=== PATIENT | male | born 1975 | race Caucasian/White ===

== ENCOUNTER 2020-03-25 15:09 | Emergency (ER) | payer OTHER, SELFPAY ==
[2020-03-25 15:20] VITALS: BP 135/83; PULSE 85; RESP 20; TEMP 37; O2SAT 98
--- NOTE | 2020-03-25 15:25 | ED.URI ---
HPI - URI/Sore Throat General Chief Complaint: Upper Respiratory Infection Stated Complaint: Sore throat Time Seen by Provider: 03/25/20 15:25 Source: patient and RN notes reviewed History of Present Illness HPI Narrative: Patient is a 44-year-old male who presents the urgent care with complaints of a swollen lymph node. Patient states it happened approximately 1 hour ago while he was eating and has gone down since his drive to our location from [place]. Patient has no other acute complaints. Has denied any upper respiratory symptoms or fever recently. Patient did nothing to improve the swollen lymph node. No other acute complaints. No acute distress noted. Patient read the plan of care. Related Data Home Medications Medication Instructions Recorded Confirmed fluticasone propionate [Flonase 1 spray INTRANASAL BID 03/25/20 03/25/20 Allergy Relief] Allergies Allergy/AdvReac Type Severity Reaction Status Date / Time No Known Allergies Allergy Unknown Unverified 03/25/20 15:28 Review of Systems Review of Systems: Narrative: CONSTITUTIONAL: Denies fever, chills, or sweats. EYES: Denies visual changes, redness, or discharge. ENT: Reports of right swollen lymph node CARDIOVASCULAR: Denies chest pain, palpitations, or edema. RESPIRATORY: Denies cough or dyspnea. GASTROINTESTINAL: Denies abdominal pain, nausea, vomiting, or diarrhea. GENITOURINARY: Denies dysuria or hematuria. SKIN: Denies rash or itching. MUSCULOSKELETAL: Denies back pain, joint pain, or myalgia. NEUROLOGIC: Denies headache, numbness, or weakness. All other systems reviewed are negative, except as documented in HPI. PMFSH Social History Social History Smoking status: Never smoker Alcohol intake: never Comments At the time of my signature, I reviewed and agree with the nursing past medical, surgical, social, and family history. There is no relevant family history pertinent to the patient complaint. Exam Narrative: Exam Narrative: GENERAL: This is a well-nourished, well-developed patient, in no apparent distress. HEAD: normocephalic, atraumatic. EYES: PERRL. Sclera clear/white. Vision is grossly intact. EARS: External ears normal NOSE: External nose normal with no obvious nasal discharge, nares without redness, no rhinorrhea. THROAT: Mucous membranes moist, posterior pharynx clear. NECK: Neck supple, non-tender very mild left submandibular lymphadenopathy, masses or thyromegaly. SKIN: warm, intact with no suspicious lesions or rash, good texture and turgor. NEURO: awake, alert, and oriented to person, place and time. There were no obvious focal neurologic abnormalities. EXTREMITIES: No clubbing, cyanosis, or edema. Course Vital Signs Vital signs: Vital Signs Temperature 98.6 F 03/25/20 15:20 Pulse Rate 85 03/25/20 15:20 Respiratory Rate 20 03/25/20 15:20 Blood Pressure 135/83 03/25/20 15:20 Pulse Oximetry 98 03/25/20 15:20 Temperature 98.6 F 03/25/20 15:20 Pulse Rate 85 03/25/20 15:20 Respiratory Rate 20 03/25/20 15:20 Blood Pressure 135/83 03/25/20 15:20 Pulse Oximetry 98 03/25/20 15:20 Reviewed MDM - URI/Sore Throat MDM Narrative Medical decision making narrative: Educated the patient on swollen lymph nodes and when to be worried. It is likely the swelling was due to increased production of saliva and swelling in the posterior parietal gland. However, there is no obvious increase swelling at this time. If you develop any increase in swelling associated with fatigue, lethargy, fever, other upper respiratory symptoms?follow-up with your PCP for further evaluation and possible blood work. However, it is very common for unilateral lymph node swelling or salivary gland swelling to be nonrelated to any infectious diseases. Lymph node swelling is typically due to viral causes. Follow-up with your PCP within 2 to 5 days or for worsening symptoms or failure to improve. Differential Diagnosis Different
== END 2020-03-25 15:42 | disposition home or self-care (01) ==
PROVIDERS: Emergency Provider Nurse Practitioner Family
DX: Z71.1 Person with feared health complaint in whom no diagnosis is made (principal)
CPT/HCPCS: 99211; G0463

== ENCOUNTER 2022-06-11 11:09 | Emergency (ER) | payer OTHER, SELFPAY ==
--- NOTE | ~2022-06-11 | XR_ITS ---
XR foot RT min 3V 06/11/2022 11:35 Indication: Right foot pain Procedure: 4 views right foot Comparison: 09/02/2006 Findings: No acute fracture, subluxation or dislocation. Mild osteoarthritis of the first MTP joint. No significant soft tissue abnormality. No foreign bodies. Impression: 1: No acute fracture. Reviewed, dictated and finalized at location B. Impression: 1: No acute fracture.
[2022-06-11 11:17] VITALS: BP 143/86; PULSE 70; RESP 14; TEMP 36.6; O2SAT 97
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
== END 2022-06-11 11:55 | disposition home or self-care (01) ==
PROVIDERS: Emergency Provider Registered Nurse
DX: M79.671 Pain in right foot (principal); F17.220 Nicotine dependence, chewing tobacco, uncomplicated; K21.9 Gastro-esophageal reflux disease without esophagitis
CPT/HCPCS: 73630; 99213; G0463

== ENCOUNTER 2024-12-23 12:22 | Outpatient (CLI) | payer OTHER, SELFPAY ==
--- OUTSIDE RECORDS SUMMARY | 2024-12-23 12:28 | XMS_ITS | Encounter Summary ---
Author Organization [facility] Address [address] [place] [address] Care Team Providers Care Director Of Strategic Programs Name Role Phone Shanita Vera MD Primary Care Provider [phone] Encounter Details Date Type Department Care Team (Late st Contact Info) Description 12/10/2024 Results Follow-Up [facility] at Work [place] [address] [place] [address] Rocio Mandel, ANGELA [address] [facility] [address] [place] [address] MAGNESIUM LEVEL, TSH REFLEXIVE, BASIC METABOLIC PANEL Social History Tobacco Use Types Packs/Day Years Used Date Smoking Tobacco: Former Cigarettes Smokeless Tobacco: Current Chew Comments:SMOKELESS TOBACCO S KALA 2010 Alcohol Use Standard Drinks/Week Comments Yes 0 (1 standard drink = 0.6 oz pure alcohol) [place] tea every few months Sex and Gender Information Value Date Recorded Sex Assigned at Male 10/06/2024 8:35 AM HAND ASSEMBLER Legal Sex Male 3:47 AM HAND ASSEMBLER Gender Identity Male 10/06/2024 8:35 AM HAND ASSEMBLER Sexual Orientation Not on file documented as of this encounter Miscellaneous Notes * Result Encounter Note - Rocio Mandel ANP - 12/10/2024 5:55 PM CDT Contact patient regarding result. All electrolyte levels are normal. Potassium low normal but is normal. Recommend eat a banana or a citrus fruit, like orange or grapefruit daily to get level up. Do not take a pill potassium supplement. Continue with plan for the heart monitor. documented in this encounter Plan of Treatment Not on file documented as of this encounter Visit Diagnoses Not on filedocumented in this encounter Care Teams Director Of Strategic Programs Relationship Specialty Start Date End Date Shanita Vera MD [address] [place] [address] [place] [address] PCP - General Internal Medicine 09/08/24 documented as of this encounter
--- OUTSIDE RECORDS SUMMARY | 2024-12-23 12:28 | XMS_ITS | Encounter Summary ---
Author Organization [facility] Address [address] [place] [address] Care Team Providers Care Conditioner Tumbler Name Role Phone Shanita Vera MD Primary Care Provider [phone] Encounter Details Date Type Department Care Team (Latest Contact Info) Description 10/24/2024 Results Follow-Up [facility] at Work [employer] [place] [address] [place] [place] [address] Rocio Mandel ANP [id number] [facility] [place] [address] [place] [address] HEMOGLOBIN A1C, CBC WITH DIFFERENTIAL Social History Tobacco Use Types Packs/Day Years Used Date Smoking Tobacco: Former Cigarettes Smokeless Tobacco: Current Chew Comments:SMOKELESS TOBACCO S KALA 2010 Alcohol Use Standard Drinks/Week Comments Yes 0 (1 standard drink = 0.6 oz pure alcohol) long island tea every few months Sex and Gender Information Value Date Recorded Sex Assigned at Male 10/06/2024 8:35 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 Pt declined to schedule at this time. * Result Encounter Note - Rocio Mandel ANP - 10/24/2024 7:28 AM CDT Contact patient regarding result. Repeat labs look good. No abnormal cells present. Blood sugar ok. Recommend FU for wt check and BP check in 6 months. documented in this encounter Plan of Treatment Not on file documented as of this encounter Visit Diagnoses Not on filedocumented in this encounter Care Teams Conditioner Tumbler Relationship Specialty Start Date End Date Shanita Vera MD [address] [place] [address] [place] [address] PCP - General Internal Medicine 09/08/24 documented as of this encounter
--- OUTSIDE RECORDS SUMMARY | 2024-12-23 12:28 | XMS_ITS | Encounter Summary ---
Author Organization [employer] Address 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
--- OUTSIDE RECORDS SUMMARY | 2024-12-23 12:28 | XMS_ITS | Referral Summary ---
Author Organization [facility] Address [address] [place] [address] Care Team Providers Care Rental Clerk Tool And Equipment Name Role Phone Oz Dockery Primary Care Provider [phone] Allergies No known active allergies Medications albuterol HFA (PROVENTIL HFA,VENTOLIN HFA,PROAIR HFA) 90 mcg/actuation inhaler Inhale 2 puffs every 4 (four) hours as needed for wheezing. 1 Inhaler 8 Active guaiFENesin-cod eine (GUAITUSS AC) liquid 100-10 mg/5 mL Take 5 mL by mouth 3 (three) times a day as needed for cough 120 mL 9 Active Additional Information Patient not taking.Reported on 07/23/2020 fluticasone propionate (FLONASE) 50 mcg/actuation nasal spray Administer 2 sprays into affected nostril(s) daily 0 Active testosterone cypionate (DEPO-TESTOTERO NE) 200 mg/mL injection Inject 200 mg into the muscle as instructed every 2 (two) weeks 0 Active Active Problems Problem Noted Date Diagnosed Date Esophagitis, unspecified with bleeding 1 Overview (11/26/2020): Added automatically from request for surgery [id number] Dysphagia 07/23/2020 Overview (07/23/2020): Added automatically from request for surgery [id number] Assessment & Plan (07/23/2020 2:20 PM SEAT BUILDER): -Schedule EGD. Class 3 severe obesity due t o excess calories without serious comorbidity with body mass index (BMI) of 40.0 to 44.9 in adult 07/23/2020 Social History Tobacco Use Types Packs/Day Years Used Date Smoking Tobacco: Some Days Cigarettes Smokeless Tobacco: Current Chew Alcohol Use Standard Drinks/Week Comments Yes 0 (1 standard drink = 0.6 oz pur e alcohol) rare Sex and Gender Information Value Date Recorded Sex Assigned at Not on file Legal Sex Male 2:00 AM SEAT BUILDER Gender Identity Male 10/04/2024 6:08 AM SEAT BUILDER Sexual Orientation Straight 10/04/2024 6: 08 AM SEAT BUILDER Last Filed Vital Signs Vital Sign Reading Time Taken Comments Blood Pressure 141/100 09/19/2020 10:15 AM SEAT BUILDER Pulse 61 09/19/2020 10:15 AM SEAT BUILDER Temperature 36.7 C (98.1 F) 09/19/2020 10:15 AM SEAT BUILDER Respiratory Rate 18 09/19/2020 10:15 AM SEAT BUILDER Oxygen Saturation 95% 09/19/2020 10:15 AM SEAT BUILDER Inhaled Oxygen Concentration - - Weight 132 kg (291 lb) 07/23/2020 10:40 AM SEAT BUILDER Height 180.3 cm (5' 11 ) 07/23/2020 10:40 AM SEAT BUILDER Body Mass Index 40.59 07/23/2020 10:40 AM SEAT BUILDER Plan of Treatment Not on file Insurance [place] [address] [address] [employer] Advance Directives For more information, please contact: [phone] * Full Code (Latest Code Status on File) Date Activated Date Inactivated Comments 09/19/2020 8:26 AM 09/19/2020 2:30 PM Care Teams Rental Clerk Tool And Equipment Relationship Specialty Start Date End Date Oz Dockery: [id number] [address] [address] PCP - General 09/19/20
--- OUTSIDE RECORDS SUMMARY | 2024-12-23 12:28 | XMS_ITS | Clinical Summary ---
Author Organization [facility] [employer] [place] Address [address] [place] [address] Care Team Providers Care Take Out Waiter Name Role Phone Shanita Vera MD Primary Care Provider [phone] Allergies No known active allergies Medications aluminum chloride (DRYSOL) 20 % SolutionIndicat ions:Hyperhidro sis Apply layer to feet daily until controlled. Then may use prn 60 mL 02/22/20 22 Active ergocalciferol (VITAMIN D2) 50,000 unit capsuleIndicati ons:Vitamin D deficiency Take 1 Capsule (50,000 Units) by mouth every 7 days. 12 Capsule 07/07/20 24 Active cetirizine (Allergy Relief, cetirizine,) 10 mg tabletIndicatio ns:Allergic rhinitis, unspecified seasonality, unspecified trigger Take 1 Tablet (10 mg) by mouth daily. 90 Tablet 10/21/19 25 Active fluticasone propionate (FLONASE) 50 mcg/spray [place], Suspension nasal inhaler Administer 2 Sprays in each nostril daily. 16 Gram 10/21/19 25 Active pantoprazole (PROTONIX) 40 mg Tablet, Delayed Release (E.C.) Take 1 tablet by mouth once daily 90 Tablet 12/08/19 25 Active pantoprazole (PROTONIX) 40 mg Tablet, Delayed Release (E.C.) Take 1 tablet by mouth once daily 90 Tablet 09/08/19 25 025 Discontinued doxycycline hyclate (VIBRAMYCIN) 100 mg tablet Take 1 Tablet (100 mg) by mouth 2 times daily for 10 days. 20 Tablet 11/16/19 25 025 Active Problems Problem Noted Date Diagnosed Date BANDAR (obstructive sleep apnea) 12/06/2024 Overview (12/06/2024): 2019 testing positive. CPAP used for 2.5 months. Not effective so pt stopped use. Chewing tobacco use 10/20/2024 Skin tags, multiple acquired 04/11/2022 Elevated serum creatinine 04/11/2022 Low vitamin B12 level 04/11/2022 Vitamin D insufficiency 04/11/2022 Mixed anxiety and depressive disorder 04/11/2022 GERD (gastroesophageal reflux disease) Allergic rhinitis 08/15/2019 Tobacco use 07/13/2018 Encounters Date Type Department Care Team Description 12/10/2024 Results Follow-Up [facility] [address] [address] Rocio Mandel, ANGELA MAGNESIUM LEVEL, TSH REFLEXIVE, BASIC METABOLIC PANEL 12/09/2024 Telephone [facility] at [facility] Oculo Therapy [place] [address] [place] [address] Rocio Mandel ANP Holter Monitor Order 12/07/2024 Refill [facility] at [place] [address] [place] [address] Shanita Vera MD 12/06/2024 1:00 PM CDT Office Visit [facility] at [place] [address] [place] [address] Rocio Mandel ANP PVC (premature ventricular contraction) (Primary Dx); Symptomatic PVCs; Morbid obesity with body mass index of 40.0-49.9 ([facility]); BANDAR (obstructive sleep apnea) 12/01/2024 Orders Only [facility] at [place] [address] [place] [address] Rocio Mandel ANP 11/29/2024 External Device Data STL ABSTRACTION Provider, Abstract 11/16/2024 2:20 PM CDT Procedure visit [facility] at [place] [address] [place] [address] Issue of repeat prescription (Primary Dx) 11/15/2024 Refill [facility] at [place] [address] [place] [address] Rocio Mandel ANP 10/25/2024 External Device Data STL ABSTRACTION Provider, Abstract 10/25/2024 External Device Data STL ABSTRACTION Provider, Abstract 10/24/2024 Results Follow-Up [facility] at [place] [address] [place] [address] Rocio Mandel ANP HEMOGLOBIN A1C, CBC WITH DIFFERENTIAL 10/22/2024 External Device Data STL ABSTRACTION Provider, Abstract 10/21/2024 External Device Data STL ABSTRACTION Provider, Abstract 10/20/2024 1:30 PM HYDROELECTRIC SYSTEMS TECHNICIAN Office Visit [facility] at [place] [address] [place] [address] Rocio Mandel ANP Abnormal CBC measurement (Primary Dx); Mixed hyperlipidemia; Acute non-recurrent maxillary sinusitis; Vitamin D insufficiency; Chewing tobacco use; Allergic rhinitis, unspecified seasonality, unspecified trigger 10/11/2024 External Device Data STL ABSTRACTION Provider, Abstract 10/06/2024 Results Follow-Up [facility] at [place] [address] [place] [address] Shanita Vera MD TSH, LIPID PANEL, COMPREHENSIVE METABOLIC PANEL, Additional followed-up results: 2 10/04/2024 8:00 AM HYDROELECTRIC SYSTEMS TECHNICIAN Office Visit [facility] at [place] [address] [place] [address] Screening for condition (Primary Dx); Vitamin D deficiency 09/26/2024 Refill [facility] at [address] [place] [address] Roya Guillaume MD Vitamin D deficiency from Last 3 Months Immunizations Immunization Administration Dates Next Due Influenza Seasonal Unspecified Formulation IM Family History Medical History Relation Name Comments Unknown Father n/a Heart Surgery Maternal Grandfather Unknown Maternal Grandmother n/a Cataract Mother titi Other Mother titi blood clots, to bacco use Stroke Mother titi Unknown Paternal Grandfather n/a n/a Unknown Paternal Grandmother n/a n/a Relation Name Status Comments Father n/a Other Maternal Grandfather Maternal Grandmother n/a Alive Mother titi Paternal Grandfather n/a Other Paternal Grandmother n/a Other Social History Tobacco Use Types Packs/Day Years Used Date Smoking Tobacco: Former Cigarettes Smokeless Tobacco: Current Chew Tobacco Cessation:Ready to Q uit: Not Asked; Counseling Given: Not Answered Comments:SMOKELESS TOBACCO SINCE 2010 Alcohol Use Standard Drinks/Week Comments Yes 0 (1 standard drink = 0.6 oz pure alcohol) [place] tea every few months Sex and Gender Information Value Date Recorded Sex Assigned at Male 10/06/2024 8:35 AM HYDROELECTRIC SYSTEMS TECHNICIAN Legal Sex Male 3:47 AM HYDROELECTRIC SYSTEMS TECHNICIAN Gender Identity Male 10/06/2024 8:35 AM HYDROELECTRIC SYSTEMS TECHNICIAN Sexual Orientation Not on file Last Filed Vital Signs Vital Sign Reading Time Taken Comments Blood Pressure 128/76 12/06/2024 12:59 PM CDT Pulse 74 12/06/2024 12:59 PM CDT Temperature 37 C (98.6 F) 12/06/2024 12:59 PM CDT Respiratory Rate 18 12/06/2024 12:59 PM CDT Oxygen Saturation 98% 12/06/2024 12:59 PM CDT Inhaled Oxygen Concentration - - Weight 137.4 kg (303 lb) 12/06/2024 12:59 PM CDT Height 180.3 cm (5' 11 ) 12/06/2024 12:59 PM CDT Body Mass Index 42.26 12/06/2024 12:59 PM CDT Plan of Treatment Health Maintenance Due Date Last Done Comments DTAP/TDAP/TD VACCINES (1 - Tdap) 1993 HEPATITIS B VACCINES (1 of 3 - 19+ 3-dose series) 1993 COLORECTAL SCREENING 2019 FIT/FOBT Q 1 year 2019 Flex Sig/CT Colonography Q 5 years 2019 INFLUENZA VACCINE (#1) 2024 09/24/2020 ZOSTER VACCINE (1 of 2) 2024 Preventative Visit- Commercial 08/17/2024 Colorectal Cancer Screening 07/22/2027 FIT-DNA Q 3 years 07/22/2027 07/22/2024 Pre-Diabetes and Diabetes Screening 10/21/2027 10/20/2024, 05/29/2023, 10/13/2022, Additional history exists Procedures Procedure Name Priority Date/Time Associated Diagnosis Comments BASIC METABOLIC PANEL Routine 12/06/2024 1:40 PM CDT Symptomatic PVCs TSH REFLEXIVE Routine 12/06/2024 1:40 PM CDT Symptomatic PVCs MAGNESIUM LEVEL Routine 12/06/2024 1:40 PM CDT Symptomatic PVCs DC ECG ROUTINE ECG W/LEAST 12 LDS W/I&R Routine 12/06/2024 1:00 PM CDT Symptomatic PVCs CBC WITH DIFFERENTIAL Routine 10/20/2024 2:10 PM HYDROELECTRIC SYSTEMS TECHNICIAN Abnormal CBC measurement HEMOGLOBIN A1C Routine 10/20/2024 2:10 PM HYDROELECTRIC SYSTEMS TECHNICIAN Abnormal CBC measurement VITAMIN D 25 HYDROXY Routine 10/04/2024 7:54 AM HYDROELECTRIC SYSTEMS TECHNICIAN Vitamin D deficiency CBC WITH DIFFERENTIAL Routine 10/04/2024 7:54 AM HYDROELECTRIC SYSTEMS TECHNICIAN Screening for condition COMPREHENSIVE METABOLIC PANEL Routine 10/04/2024 7:54 AM HYDROELECTRIC SYSTEMS TECHNICIAN Screening for condition LIPID PANEL Routine 10/04/2024 7:54 AM HYDROELECTRIC SYSTEMS TECHNICIAN Screening for condition TSH Routine 10/04/2024 7:54 AM HYDROELECTRIC SYSTEMS TECHNICIAN Screening for condition COLON CANCER SCREEN, STOOL DNA Routine 07/22/2024 1:26 AM HYDROELECTRIC SYSTEMS TECHNICIAN Encounter for colorectal cancer screening from Last 3 Months or Most Recently Relevant to Health Maintenance Results * TSH REFLEXIVE (12/06/2024 1:40 PM CDT) [facility] TSH 1.78 0.40 - 4.50 mIU/L [facility] Comment: Test Performed at: [place] [address] [place] [address] [facility] Blood 12/06/2024 1:40 PM CDT 12/07/2024 2:54 AM CDT Rocio Mandel ANP CHEMISTRY ORDERABLES Final R esult [facility] [phone] [place] [address] [address] [place] [address] * MAGNESIUM LEVEL (12/06/2024 1:40 PM CDT) [facility] MAGNESIUM 2.1 1.5 - 2.5 mg/dL [facility] Comment: Test Performed at: [place] [address] [place] [address] [facility] Blood 12/06/2024 1:40 PM CDT 12/07/2024 2:54 AM CDT Rocio Mandel ANP CHEMISTRY ORDERABLES Final R [facility] [phone] [place] [address] [address] [address] * BASIC METABOLIC PANEL (12/06/2024 1:40 PM CDT) [facility] GLUCOSE 99 65 - 99 mg/dL [facility] Comment: Fasting reference interval BUN 14 7 - 25 mg/dL [facility] CREATININE 1.22 0.70 - 1.30 mg/dL [facility] GFR 72 > OR = 60 mL/min/1. 73m2 [facility] BUN/CREAT RATIO SEE NOTE: (calc) [facility] Comment: Not Reported: BUN and Creatinine are within reference range. SODIUM 139 135 - 146 mmol/L [facility] POTASSIUM 3.9 3.5 - 5.3 mmol/L [facility] CHLORIDE 101 98 - 110 mmol/L [facility] CO2 25 20 - 32 mmol/L [facility] CALCIUM 9.7 8.6 - 10.3 mg/dL [facility] Comment: Test Performed at: [facility] [address] [place] [address] [place] Blood 12/06/2024 1:40 PM CDT 12/07/2024 2:54 AM CDT us Rocio MILLER CHEMISTRY ORDERABLES Final R esult [facility] [phone] [place] [address] [address] [place] [address] * DC ECG ROUTINE ECG W/LEAST 12 LDS W/I&R (12/06/2024 1:00 PM CDT) Narrative [facility] - 12/06/2024 1:00 PM CDT Rocio Mandel ANP 12/06/2024 2:04 PM EKG 12-LEAD Date/Time: 12/06/2024 1:00 PM Performed by: Santos Senior Authorized by: Rocio Mandel ANP Comparison: not compared with previous ECG Rhythm: sinus rhythm BPM: 68 QRS axis: normal Conduction: non-specific intraventricular conduction delay Conduction comments: Per EKG computer reading ST Segments: ST segments normal T Waves: T waves normal Clinical impression: non-specific ECG Comments: No ischemic changes. DC and QTc intervals normal. Procedure Note Rocio Mandel ANP - 12/06/2024 1:12 PM CDT HISTORY OF PRESENT ILLNESS Rocael Castaneda, a 49 y.o. male presents with a Chief Complaint of HeartIssue (Patient states he has a history of PVC's and it feels like it hasbeen happening more frequent last few weeks.) Reports return of a slight flip flop or tap sensation in chest. 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 We ran normal labs and had stress echoreturning normal. At that time, he felt a skipping sensation in chest thatwas a hard thump. In last one month, feels similar skip sensation butdesribes as a light tap. Never exertional. Occurs multiple times dailylasting only seconds. Denies excess caffeine, stress. Hydrates wellwith water during work. Weak tea to drink in evenings. Wt up 20 lbs over last 6 months. Reports snoring. BANDAR testing positive [id number]. He was treated with CPAP which he used for 2.5 months and did notfeel improvement in fatigue, so stopped treatment. REVIEW OF SYSTEMS Review of Systems Constitutional: Positive for fatigue and unexpected weight change. Respiratory: Negative for cough, chest tightness and shortness of breath. Cardiovascular: Positive for palpitations. Negative for chest pain andleg swelling. Neurological: Negative for dizziness and light-headedness. Hematological: Does not bruise/bleed easily. Psychiatric/Behavioral: Positive for sleep disturbance (snoring). Objective PHYSICAL EXAM BP 128/76 (BP Location: Right arm, Patient Position (BP): Sitting, BP CuffSize: Large Adult) Pulse 74 Temp 98.6 F (37 C) (Tympanic) Resp18 Ht 5' 11 (1.803 m) Wt (!) 137.4 kg (303 lb) SpO2 98% BMI42.26 kg/m Physical Exam Vitals reviewed. Constitutional: General: He is not in acute distress. HENT: Head: Normocephalic. Mouth/Throat: Mouth: Mucous membranes are moist. Pharynx: Oropharynx is clear. Eyes: Conjunctiva/sclera: Conjunctivae normal. Neck: Vascular: No carotid bruit. Cardiovascular: Rate and Rhythm: Normal rate and regular rhythm. Heart sounds: Normal heart sounds. No murmur heard. Pulmonary: Effort: Pulmonary effort is normal. Breath sounds: Normal breath sounds. Abdominal: Palpations: Abdomen is soft. Tenderness: There is no abdominal tenderness. Musculoskeletal: Cervical back: Neck supple. Right lower leg: No edema. Left lower leg: No edema. Lymphadenopathy: Cervical: No cervical adenopathy. Neurological: General: No focal deficit present. Mental Status: He is alert. Psychiatric: Mood and Affect: Mood normal. EKG 12-LEAD Date/Time: 12/06/2024 1:00 PM Performed by: Santos Senior Authorized by: Rocio Mandel ANP Comparison: not compared withprevious ECG Rhythm: sinus rhythm BPM: 68 QRS axis: normal Conduction: non-specific intraventricular conduction delay Conduction comments: Per EKG computer reading ST Segments: ST segments normal T Waves: T waves normal Clinical impression: non-specific ECG Comments: No ischemic changes. DC and QTc intervals normal. Assessment ASSESSMENT and PLAN: 1. PVC (premature ventricular contraction) (Primary) Past history. Not shown on EKG today. Check HOLTER monitor x 48-72 hoursto eval and quantify. 2. Symptomatic PVCs - BASIC METABOLIC PANEL; Future - TSH REFLEXIVE; Future - MAGNESIUM LEVEL; Future - HOLTER MONITOR; Future - EKG 12-LEAD - MAGNESIUM LEVEL - TSH REFLEXIVE - BASIC METABOLIC PANEL 3. Morbid obesity with body mass index of 40.0-49.9 (CMS/HCC) Wt gain may be factor. 4. BANDAR (obstructive sleep apnea) Not using CPAP x 5yrs. Consider retesting. Pt declined for now. Prefersget Holter and labs first. FOLLOW UP based on test results and improvement. Appropriate medications prescribed and pt instructed in risks , benefitsand side effects. Appropriate patient instructions provided . See details in AVS Medications and options explained to include common side effects.Understanding of medications, course, diagnosis, and expectations wereexpressed by patient/guardian. Pt advised to call my office in one week if not contacted with any orderedtest results. ANGELA Fountain 12/06/2024 [facility] [address] [address] Some of this encounter may have been transcribed using [employer] computerized voice recognition without a human office chair assembler.This report may or may not have been adjusted for typographical or medicaland syntax errors. us Rocio MILLER ECG ORDERABLES Final Result [facility] [id number] [address] [place] [address] * CBC WITH DIFFERENTIAL (10/20/2024 2:10 PM HYDROELECTRIC SYSTEMS TECHNICIAN) Only the most recent of2 resultswithin the time period is included. WBC 8.4 3.8 - 10.8 Thousand/u L [facility] RBC 4.80 4.20 - 5.80 Million/uL [facility] HEMOGLOBIN 14.2 13.2 - 17.1 g/dL [facility] [place] HEMATOCRIT 42.3 38.5 - 50.0 % [facility] [place] MCV 88.1 80.0 - 100.0 fL [facility] MCH 29.6 27.0 - 33.0 pg [facility] MCHC 33.6 32.0 - 36.0 g/dL [facility] Comment: For adults, a slight decrease in the calculated MCHC value (in the range of 30 to 32 g/dL) is most likely not clinically significant; however, it should be interpreted with caution in correlation with other red cell parameters and the patient's clinical condition. RDW 13.1 11.0 - 15.0 % [facility] PLATELETS 233 140 - 400 Thousand/u L [facility] MPV 10.5 7.5 - 12.5 fL [facility] NEUTROPHIL ABSOLUTE 5,678 1,500 - 7,800 cells/uL [facility] LYMPHOCYTE ABSOLUTE 1,915 850 - 3,900 cells/uL [facility] MONOCYTE ABSOLUTE 538 200 - 950 cells/uL [facility] EOSINOPHIL ABSOLUTE 210 15 - 500 cells/uL [facility] BASOPHILS ABSOLUTE 59 0 - 200 cells/uL [facility] NEUTROPHIL 67.6 % [facility] LYMPHOCYTES 22.8 % [facility] MONOCYTE 6.4 % [facility] EOSINOPHILS 2.5 % [facility] BASOPHILS 0.7 % [facility] Comment: Test Performed at: [facility] [address] [place] [place] [address] [place] Blood 10/20/2024 2:10 PM HYDROELECTRIC SYSTEMS TECHNICIAN 10/21/2024 12:18 AM HYDROELECTRIC SYSTEMS TECHNICIAN us Rocio Mandel ANP HEMATOLOGY ORDERABLES Final Result [facility] [phone] [place] [address] [place] [address] * HEMOGLOBIN A1C (10/20/2024 2:10 PM HYDROELECTRIC SYSTEMS TECHNICIAN) HEMOGLOBIN A1C 5.4 <5.7 % of total Hgb [facility] Comment: For the purpose of screening for the presence of diabetes: <5.7% Consistent with the absence of diabetes 5.7-6.4% Consistent with increased risk for diabetes (prediabetes) > or =6.5% Consistent with diabetes This assay result is consistent with a decreased risk of diabetes. Currently, no consensus exists regarding use of hemoglobin A1c for diagnosis of diabetes in children. According to [place] Diabetes Association (ADA) guidelines, hemoglobin A1c <7.0% represents optimal control in non- diabetic patients. Different metrics may apply to specific patient populations. Standards of Medical Care in Diabetes(ADA). ESTIMATED AVERAGE GLUCOSE (MG/DL) 108 mg/dL [facility] ESTIMATED AVERAGE GLUCOSE (MMOL/L) 6.0 mmol/L [facility] Comment: Test Performed at: [place] [address] [place] [address] [place] Blood 10/20/2024 2:10 PM HYDROELECTRIC SYSTEMS TECHNICIAN 10/21/2024 12:18 AM HYDROELECTRIC SYSTEMS TECHNICIAN Rocio Mandel [facility] CHEMISTRY ORDERABLES Final R esult Performing Organization Address [facility] Code Phone Number [facility] [phone] [place] [address] [place] [address] * VITAMIN D 25 HYDROXY (10/04/2024 7:54 AM HYDROELECTRIC SYSTEMS TECHNICIAN) VITAMIN D, 25 [place], TOTAL 49 30 - 100 ng/mL [facility] Comment: Vitamin D Status 25-OH Vitamin D: Deficiency: <20 ng/mL Insufficiency: 20 - 29 ng/mL Optimal: > or = 30 ng/mL For 25-OH Vitamin D testing on patients on D2-supplementation and patients for whom quantitation of D2 and D3 fractions is required, the [facility]() 25-OH VIT D, (D2,D3), LC/MS/MS is recommended: order code 01957 (patients >2yrs). See Note 1 Note 1 For additional information, please refer to http://education.[facility]/faq/ODJ686 (This link is being provided for informational/ educational purposes only.) Test Performed at: [facility] [address] [place] [address] [place] MD Blood 10/04/2024 7:54 AM HYDROELECTRIC SYSTEMS TECHNICIAN 10/05/2024 1:22 AM HYDROELECTRIC SYSTEMS TECHNICIAN Shanita Vera MD CHEMISTRY ORDERABLES Final Res ult Performing Organization Address City/[facility]/ZIP [facility] Phone Number [facility] [phone] [facility] [address] * TSH (10/04/2024 7:54 AM HYDROELECTRIC SYSTEMS TECHNICIAN) Pathologist [facility] TSH 2.48 0.40 - 4.50 mIU/L [facility] Comment: Test Performed at: [facility] [place] [address] [place] [address] [place] Blood 10/04/2024 7:54 AM HYDROELECTRIC SYSTEMS TECHNICIAN 10/05/2024 1:21 AM HYDROELECTRIC SYSTEMS TECHNICIAN us Shanita Vera MD CHEMISTRY ORDERABLES Final Res ult Performing Organization Address City/[facility] Phone Number [facility] [phone] [place] [address] [place] [address] * (ABNORMAL) LIPID PANEL (10/04/2024 7:54 AM HYDROELECTRIC SYSTEMS TECHNICIAN) Pathologist [facility] CHOLESTEROL 183 <200 mg/dL [facility] [place] HDL 33(L) > OR = 40 mg/dL [facility] TRIGLYCERIDE 228(H) <150 mg/dL [facility] Comment: If a non-fasting specimen was collected, consider repeat triglyceride testing on a fasting specimen if clinically indicated. Josh et al. J. of Clin. Lipidol. 2015;9:129-169. LDL CALCULATED 115(H) mg/dL (calc) [facility] Comment: Reference range: <100 Desirable range <100 mg/dL for primary prevention; <70 mg/dL for patients with CHD or diabetic patients with > or = 2 CHD risk factors. LDL-C is now calculated using the Terry calculation, which is a validated novel method providing better accuracy than the Friedewald equation in the estimation of LDL-C. Billy SS et al. REENA. 2013;310(19): 2785-1077 (http://education.[facility]/faq/WJY333) CHOL/HDL RATIO 5.5(H) <5.0 (calc) [facility] NON-HDL CHOLESTEROL 150(H) <130 mg/dL (calc) [facility] Comment: For patients with diabetes plus 1 major ASCVD risk factor, treating to a non-HDL-C goal of <100 mg/dL (LDL-C of <70 mg/dL) is considered a therapeutic option. Test Performed at: [place] [address] [place] [address] [place] Blood 10/04/2024 7:54 AM HYDROELECTRIC SYSTEMS TECHNICIAN 10/05/2024 1:21 AM HYDROELECTRIC SYSTEMS TECHNICIAN us Shanita Vera MD CHEMISTRY ORDERABLES Final Res ult [facility] [phone] [place] [address] [address] [place] [address] * COMPREHENSIVE METABOLIC PANEL (10/04/2024 7:54 AM HYDROELECTRIC SYSTEMS TECHNICIAN) GLUCOSE 87 65 - 99 mg/dL [facility] Comment: Fasting reference interval BUN 13 7 - 25 mg/dL [facility] CREATININE 1.21 0.70 - 1.30 mg/dL [facility] GFR 73 > OR = 60 mL/min/1. 73m2 [facility] BUN/CREAT RATIO SEE NOTE: 6 - 22 (calc) [facility] Comment: Not Reported: BUN and Creatinine are within reference range. SODIUM 139 135 - 146 mmol/L [employer] [facility] POTASSIUM 4.1 3.5 - 5.3 mmol/L [facility] CHLORIDE 102 98 - 110 mmol/L [facility] CO2 27 20 - 32 mmol/L [facility] CALCIUM 9.4 8.6 - 10.3 mg/dL [facility] TOTAL PROTEIN 7.1 6.1 - 8.1 g/dL [facility] ALBUMIN 4.6 3.6 - 5.1 g/dL [facility] GLOBULIN 2.5 1.9 - 3.7 g/dL (calc) [facility] ALBUMIN/GLOBULIN RATIO 1.8 1.0 - 2.5 (calc) [facility] BILIRUBIN TOTAL 0.7 0.2 - 1.2 mg/dL [facility] ALKALINE PHOSPHATASE 50 35 - 144 U/L [facility] AST 27 10 - 35 U/[facility] ALT 39 9 - 46 U/L [facility] Comment: Test Performed at: [facility] [address] [place] [address] [place] Blood 10/04/2024 7:54 AM HYDROELECTRIC SYSTEMS TECHNICIAN 10/05/2024 1:21 AM HYDROELECTRIC SYSTEMS TECHNICIAN us Shanita Vera MD CHEMISTRY ORDERABLES Final Res ult [facility] [phone] [facility] [address] [place] [address] * COLON CANCER SCREEN, STOOL DNA (07/22/2024 1:26 AM HYDROELECTRIC SYSTEMS TECHNICIAN) COLOGUARD RESULT Negative Negative [facility] Comment: NEGATIVE TEST RESULT. A negative Cologuard result indicates a low likelihood that a colorectal cancer (CRC) or advanced adenoma (adenomatous polyps with more advanced pre-malignant features) is present. The chance that a person with a negative Cologuard test has a colorectal cancer is less than 1 in 1500 (negative predictive value >99.9%) or has an advanced adenoma is less than 5.3% (negative predictive value 94.7%). These data are based on a prospective cross-sectional study of 10,000 individuals at average risk for colorectal cancer who were screened with both Cologuard and colonoscopy. (Facundo Bethea, N Engl J Med 2014;370(14):7356-6316) The normal value (reference range) for this assay is negative. COLOGUARD RE-SCREENING RECOMMENDATION: Periodic colorectal cancer screening is an important part of preventive healthcare for asymptomatic individuals at average risk for colorectal cancer. Following a negative Cologuard result, the [place] [employer] and U.S. Multi-Society Task Force screening guidelines recommend a Cologuard re-screening interval of 3 years. References: [place] [employer] Guideline for Colorectal Cancer Screening: https://www.cancer.org/cancer/xtnip-kspgwr-xnjmut/lfnzuguwx-lpigxhvsv-oolgxyf/ac s-rec ommendations.html.; Viktor DK, Arron CR, Temo BradleyK, Colorectal Cancer Screening: Recommendations for Physicians and Patients from the U.S. Multi-Society Task Force on Colorectal Cancer Screening , Am J Gastroenterology 2017; 112:0826-8468. TEST DESCRIPTION: Composite algorithmic analysis of stool DNA-biomarkers with hemoglobin immunoassay. Quantitative values of individual biomarkers are not reportable and are not associated with individual biomarker result reference ranges. Cologuard is intended for colorectal cancer screening of adults of either sex, 45 years or older, who are at average-risk for colorectal cancer (CRC). Cologuard has been approved for use by the U.S. FDA. The performance of Cologuard was established in a cross sectional study of average-risk adults aged 50-84. Cologuard performance in patients ages 45 to 49 years was estimated by sub-group analysis of near-age groups. Colonoscopies performed for a positive result may find as the most clinically significant lesion: colorectal cancer [4.0%], advanced adenoma (including sessile serrated polyps greater than or equal to 1cm diameter) [20%] or non- advanced adenoma [31%]; or no colorectal neoplasia [45%]. These estimates are derived from a prospective cross-sectional screening study of 10,000 individuals at average risk for colorectal cancer who were screened with both Cologuard and colonoscopy. (Imperiale T. et al, N Engl J Med 2014;370(14):1829-0913.) Cologuard may produce a false negative or false positive result (no colorectal cancer or precancerous polyp present at colonoscopy follow up). A negative Cologuard test result does not guarantee the absence of CRC or advanced adenoma (pre-cancer). The current Cologuard screening interval is every 3 years. ([place] [employer] and U.S. Multi-Society Task Force). Cologuard performance data in a 10,000 patient pivotal study using colonoscopy as the reference method can be accessed at the following location: www.Paperlit.Convrrt/results. Additional description of the Cologuard test process, warnings and precautions can be found at www.[employer] Pharmaceuticals[employer]uard.Convrrt. Stool STOOL SPECIMEN / Unknown 07/22/2024 1:26 AM HYDROELECTRIC SYSTEMS TECHNICIAN 07/23/2024 1:27 PM HYDROELECTRIC SYSTEMS TECHNICIAN Roya Guillaume MD BODY FLUIDS AND STOOLS Final Result [facility] CLIA # [id number] [address] , [address] [place] [address] from Last 3 Months or Most Recently Relevant to Health Maintenance Insurance [employer] OPEN ACCESS ALLEGIANCE OPEN ACCESS JOSEDELMI FITZGERALD [id number] * Guarantor: [employer] Account Type Relation to Patient Date of Phone Billing Address Corporate Employer ATTN: FREDY CAMPBELL [address] [address] Care Teams Take Out Waiter Relationship Specialty Start Date End Date Shanita Vera MD [address] [place] [id number] PCP - General Internal Medicine 09/08/24
--- OUTSIDE RECORDS SUMMARY | 2024-12-23 12:28 | XMS_ITS | Clinical Summary ---
Author Organization [facility] Address [address] [place] [address] Phone Care Team Providers Care Campus Police Officer Name Role Phone Provider, None Primary Care Provider Unavailabl e Allergies No known active allergies Medications guaiFENesin-cod eine (GUAIFENESIN AC) 100-10 MG/5ML Syrup Take 5 mL by mouth every 4 hours as needed for Cough. 120 mL 0 6 Active albuterol (PROVENTIL HFA, VENTOLIN HFA) 108 (90 BASE) MCG/ACT Aerosol Solution take 2 Puffs by inhalation every 6 hours as needed for Wheezing. 1 Inhaler 0 6 Active dicyclomine (BENTYL) 20 MG Tablet Take 1 Tablet by mouth every 6 hours. 30 Tablet 3 Active ondansetron (ZOFRAN) 4 MG Tablet Take 1 Tablet by mouth every 8 hours as needed for Nausea - 1st line. 10 Tablet 3 Active Active Problems Problem Noted Date Diagnosed Date Cough 09/18/2015 Social History Tobacco Use Types Packs/Day Years Used Date Smoking Tobacco: Former Smokeless Tobacco: Current Chew Alcohol Use Standard Drinks/Week Comments Yes 0 (1 standard drink = 0.6 oz pur e alcohol) Sex and Gender Information Value Date Recorded Sex Assigned at Not on file Legal Sex Male 10:15 PM CDT Gender Identity Not on file Sexual Orientation Not on file Last Filed Vital Signs Vital Sign Reading Time Taken Comments Blood Pressure 132/62 06/19/2023 10:35 AM CDT Pulse 88 06/19/2023 10:35 AM CDT Temperature 37.7 C (99.8 F) 11/05/2022 12:45 PM CDT Respiratory Rate 20 11/05/2022 12:45 PM CDT Oxygen Saturation 95% 11/05/2022 12:45 PM CDT Inhaled Oxygen Concentration - - Weight 129.3 kg (285 lb) 06/19/2023 9:54 AM CDT Height 180.3 cm (5' 11 ) 06/19/2023 9:54 AM CDT Body Mass Index 39.75 06/19/2023 9:54 AM CDT Plan of Treatment Health Maintenance Due Date Last Done Comments Hepatitis C Virus (HCV) Screening 1974 TdaP Immunization 1974 Hepatitis B Immunization (1 of 3 - 19+ 3-dose series) 1993 Colonoscopy 2019 Colorectal Cancer Screening 2019 SARS-COV-2 Immunization ( season) 2024 Cologuard 2024 Immunochemical Fecal Occult Blood 2024 Pneumococcal Immunization (5 0+ years) (1 of 1 - PCV) 2024 Zoster Immunization (1 of 2) 2024 Influenza Immunization (Seas on Ended) 2025 09/24/2020, 08/17/1998 Respiratory Syncytial Virus (RSV) Immunization (Adult) (1 - 1-dose 75+ series) 2049 Human Papillomavirus (HPV) Immunization Aged Out No longer eligible b ased on patient's age to complete this topic Meningococcal Immunization (ACWY) Aged Out No longer eligible b ased on patient's age to complete this topic Rotavirus Immunization Aged Out No lo nger eligible based on patient's age to complete this topic Insurance ON LICENSE OF [facility] Care Teams Campus Police Officer Relationship Specialty Start Date End Date Provider, None [place] PCP - General 09/18/15
--- OUTSIDE RECORDS SUMMARY | 2024-12-23 12:28 | XMS_ITS | Clinical Summary ---
Author Organization [facility] Address [address] [place] [address] Care Team Providers Care President And Chief Executive Officer Name Role Phone Oz Dockery Primary Care Provider [phone] Allergies No known active allergies Medications albuterol [...] (11/26/2020): Added automatically from request for surgery [id number] Dysphagia 07/23/2020 Overview (07/23/2020): Added automatically from request for surgery [id number] Assessment & Plan (07/23/2020 2:20 PM EMPLOYMENT LAW SPECIALIST): -Schedule EGD. Class 3 severe obesity due [...] on file Legal Sex Male 2:00 AM EMPLOYMENT LAW SPECIALIST Gender Identity Male 10/04/2024 6:08 AM EMPLOYMENT LAW SPECIALIST Sexual Orientation Straight 10/04/2024 6: 08 AM EMPLOYMENT LAW SPECIALIST Obstetrics History Last Filed Vital Signs Vital Sign Reading Time Taken Comments Blood Pressure 141/100 09/19/2020 10:15 AM EMPLOYMENT LAW SPECIALIST Pulse 61 09/19/2020 10:15 AM EMPLOYMENT LAW SPECIALIST Temperature 36.7 C (98.1 F) 09/19/2020 10:15 AM EMPLOYMENT LAW SPECIALIST Respiratory Rate 18 09/19/2020 10:15 AM EMPLOYMENT LAW SPECIALIST Oxygen Saturation 95% 09/19/2020 10:15 AM EMPLOYMENT LAW SPECIALIST Inhaled Oxygen Concentration - - Weight 132 kg (291 lb) 07/23/2020 10:40 AM EMPLOYMENT LAW SPECIALIST Height 180.3 cm (5' 11 ) 07/23/2020 10:40 AM EMPLOYMENT LAW SPECIALIST Body Mass Index 40.59 07/23/2020 10:40 AM EMPLOYMENT LAW SPECIALIST Plan of Treatment Health Maintenance Due Date Last Done Comments Colon Cancer Screening-Colonoscopy 1974 Depression Screening 1974 Hepatitis C Screening 1974 Prostate Cancer Screening-PSA 1974 DTaP/Tdap/Td Vaccine (1 - Tdap) 1985 Hepatitis B Screening 1992 Regular Well Visit/Exam 18-64 1992 Pneumococcal vaccine <65 (1 of 2 - PCV) 1993 Zoster Vaccine (1 of 2) 2024 Influenza Vaccine (Season Ended) 2025 09/24/19 21 Insurance [facility] Advance Directives For more information, please contact: [phone] * Full Code (Latest Code Status on File) Date Activated Date Inactivated Comments 09/19/2020 8:26 AM 09/19/2020 2:30 PM Care Teams President And Chief Executive Officer Relationship Specialty Start Date End Date Oz Dockery: [phone] [address] [place] [address] PCP - General 09/19/20
--- OUTSIDE RECORDS SUMMARY | 2024-12-23 12:28 | XMS_ITS | Encounter Summary ---
Author Organization [facility] Address [address] [place] [address] Care Team Providers Care Claims Configuration Analyst Name Role Phone Shanita Vera MD Primary Care Provider [phone] Encounter Details Date Type Department Care Team (Late st Contact Info) Description 05/18/2001 Outpatient Historical [facility] MalencOz miles MD [address] [place] [address] Injury, other and unspecified, hand, except finger (Primary Dx) Social History Tobacco Use Types Packs/Day Years Used Date Smoking Tobacco: Never Assessed Sex and Gender Information Value Date Recorded Sex Assigned at Male 10/06/2024 8:35 AM BINDERY HELPER Legal Sex Male 3:47 AM BINDERY HELPER Gender Identity Male 10/06/2024 8:35 AM BINDERY HELPER Sexual Orientation Not on file documented as of this encounter Plan of Treatment Not on file documented as of this encounter Visit Diagnoses Diagnosis Injury, other and unspecified, hand, except finger- Primary documented in this encounter Care Teams Claims Configuration Analyst Relationship Specialty Start Date End Date Shanita Vera MD [address] [place] [phone] PCP - General Internal Medicine 09/08/24 documented as of this encounter
--- OUTSIDE RECORDS SUMMARY | 2024-12-23 12:28 | XMS_ITS | Encounter Summary ---
Author Organization [facility] Address [address] [place] [address] Care Team Providers Care Disaster Recovery Analyst Name Role Phone Shanita Vera MD Primary Care Provider [phone] Encounter Details Date Type Department Care Team (Late st Contact Info) Description 06/19/2001 Outpatient Historical [facility] JaylonncOz miles MD [address] [place] [address] HAND INJURY NOS (Primary Dx) Social History Tobacco Use Types Packs/Day Years Used Date Smoking Tobacco: Never Assessed Sex and Gender Information Value Date Recorded Sex Assigned at Male 10/06/2024 8:35 AM GOLF INSTRUCTOR Legal Sex Male 3:47 AM GOLF INSTRUCTOR Gender Identity Male 10/06/2024 8:35 AM GOLF INSTRUCTOR Sexual Orientation Not on file documented as of this encounter Plan of Treatment Not on file documented as of this encounter Visit Diagnoses Diagnosis Injury, other and unspecified, hand, except finger- Primary documented in this encounter Care Teams Disaster Recovery Analyst Relationship Specialty Start Date End Date Shanita Vera MD [address] [place] [phone] PCP - General Internal Medicine 09/08/24 documented as of this encounter
--- NOTE | 2025-01-10 12:33 | WPDHOLTEREM ---
Holter/Event Monitor Holter/Event Monitor Date of procedure: 12/23/24 Holter/Event Procedure: 3-7 Day Holter Monitor Indications: PVC's Conclusion: 1. 3 days holter monitor on 12/23/24. 2. Underlying rhythm is sinus rhythm. HR range 46-192 bpm; average HR 85 bpm. HR at 46 bpm was on 12/24/24 at 5:48 am. HR at 192 bpm was on 12/24/24 at 2:06 pm. 3. There are rare premature supraventricular complexes. No supraventricular tachycardia. 4. No premature ventricular complexes. No ventricular tachycardia. 5. No significant pauses greater than 3 seconds. 6. No symptoms available for correlation.
== END 2024-12-23 12:23 | disposition home or self-care (01) ==
PROVIDERS: Visit Provider Nurse Practitioner Adult Health
DX: I49.1 Atrial premature depolarization (principal)
CPT/HCPCS: 93242